=== PATIENT | female | born 1960 | race Caucasian/White ===

== ENCOUNTER 2018-11-29 17:12 | Inpatient (IN) | payer MEDICAID, OTHER ==
--- NOTE | 2018-11-29 17:32 | EDPHY ---
H & P Source: Patient Exam Limitations: No limitations Time Seen by Provider: 11/29/18 17:27 HPI/ROS: HPI: This is a 57-year-old female who presents with Chief Complaint: Cold x2 weeks Location: Nose, throat, body Quality: Cold Duration: 2 weeks Signs and Symptoms: no fever, +o nausea, no vomiting, no diarrhea, no urinary symptoms, no chest pain, no shortness of breath, no wheezing, no cough, no sore throat, no neck stiffness, no joint pain, no swollen glands, no ear pain, no rash Timing: Severity: Context: Patient has FS GS, followed by [facility], Dr. Montoya, presents with 2 week history of a cold. She reports that she has nasal congestion, sore throat, body aches. She has reported 17 lb weight gain in 1 month. She denies any pedal edema. She had some collection in her eye lashes and medial canthus several days ago. Denies any eye redness, visual changes. She has no fever, vomiting, diarrhea. She did not receive her influenza vaccine this year. No history of lung disease. Patient reports that she had lab work drawn today but does not know the results of these. Patient has been taking furosemide 80 mg daily without improvement in symptoms. She reports that she feels puffiness underneath both of her eyes. She is afraid that her FS she is acting up. Patient notes decreased urine output over the last several days. Patient reports that she has required steroids in the past but has been in remission. Modifying Factors: None Comment: ROS: A comprehensive 10 system review of systems is otherwise negative aside from elements mentioned in the history of present illness. MEDICAL/SURGICAL/SOCIAL HISTORY: Medical history: FSGS. Surgical history: Denies Social history: Nonsmoker. Divorce. Family history noncontributory. CONSTITUTIONAL: Well-developed, well-nourished, well-appearing middle-aged white female, awake and alert, no obvious distress HEENT: Atraumatic and normocephalic, PERRL, EOMI. Mild puffiness noted below both eyes. Nares patent; no rhinorrhea; no nasal mucosal edema. Tympanic membranes clear. Oropharynx clear, no exudate and moist pink mucosa. Airway patent. No lymphadenopathy. No meningismus. No JVD. Cardiovascular: Normal S1/S2, regular rate, regular rhythm, without murmur rub or gallop. PULMONARY/CHEST: Symmetrical and nontender. Clear to auscultation bilaterally. Good air movement. No accessory muscle usage. ABDOMEN: Soft, nondistended, nontender, no rebound, no guarding, no peritoneal signs, no masses or organomegaly. No CVAT. EXTREMITIES: 2/2 pulses, strength 5/5, no deformities, no clubbing, no cyanosis or edema. NEUROLOGICAL: no focal neuro deficits. GCS 15. SKIN: Warm and dry, no erythema. no rash. Good capillary refill. (Harrah,Terra) Constitutional: Initial Vital Signs Temperature (C) 36.8 C 11/29/18 17:26 Heart Rate 81 11/29/18 17:26 Respiratory Rate 28 H 11/29/18 17:26 Blood Pressure 165/97 H 11/29/18 17:26 O2 Sat (%) 94 11/29/18 17:26 O2 Delivery Mode Room Air Allergies/Adverse Reactions: lisinopril Allergy (Verified 11/29/18 17:25) Home Medications: Medication Instructions Recorded Cholecalciferol Vit D3 [Vitamin D3 1,000 units PO DAILY 11/29/18 (*)] Cyanocobalamin [Vitamin B12 (*)] 1,000 mcg PO DAILY 11/29/18 Furosemide [Lasix 80 MG (*)] 80 mg PO DAILY PRN 11/29/18 Losartan Potassium [Cozaar 25 mg 25 mg PO DAILY 11/29/18 (*)] Medical Decision Making ED Course/Re-evaluation: Vital signs reviewed and show tachypnea but no hypoxia or respiratory distress. IV access, laboratory studies, urinalysis, chest x-ray ordered No indication for influenza swab at this time No Evidence of peripheral edema, ascites, sepsis 1800: Chest x-ray my read via PAC shows no opacity, no effusion, no widened mediastinum, no pneumothorax. Radiology chest x-ray read shows: Mild bronchitis. No other findings for acute cardiopulmonary abnormality. 1805: Urinalysis shows specific gravity greater than 1.035, 3+ protein, 1+ blood, 10-15 WBCs, trace bacteria, 2+ mucus 1835: Labs reviewed. No signs of leukocytosis/anemia/platelet dysfunction/ electrolyte imbalance. BUN 36, creatinine 1.3 Patient is showing proteinuria with elevated creatinine. Baseline creatinine appears to be around 1.1 Given IV Lasix 40 mg ED decision to consult hospitalist for failure of outpatient treatment, acute on chronic renal insufficiency, proteinuria. Spoke with hospitalist, Dr. Steele, who kindly agrees to admit the patient. This patient was seen under the supervision of my secondary supervising physician. I evaluated care for this patient with attending. (Kaia Briceno) The patient was evaluated and managed by the physician educational program assistant. I have reviewed this chart and I agree with the findings and plan of care as documented , as indicated by my signature. I am the secondary supervising physician. ( Angelia Duvall) Differential Diagnosis: Differential diagnosis includes but is not limited to sinusitis, upper respiratory infection, bronchitis, viral syndrome, nephrotic syndrome. (Kaia Briceno) - Data Points Laboratory Results: Laboratory Results 11/29/18 18:07 11/29/18 18:07 Medications Given: Cholecalciferol (Vitamin D) 1,000 units PO DAILY KAREN Stop: 05/29/19 08:59 Last Admin: 11/30/18 09:43 Dose: 1,000 units Furosemide (Lasix Injection) 40 mg IVP DAILY KAREN Stop: 05/29/19 08:59 Last Admin: 11/30/18 10:31 Dose: Not Given Heparin Sodium (Porcine) (Heparin Sc Injection) 5,000 unit SC Q8HRS KAREN Stop: 05/29/19 13:59 Last Admin: 11/30/18 13:07 Dose: 5,000 unit Metolazone (Zaroxolyn) 2.5 mg PO DAILY KAREN Stop: 05/29/19 12:29 Last Admin: 11/30/18 13:07 Dose: 2.5 mg Vitamin B Complex (Vitamin B12) 1,000 mcg PO DAILY KAREN Stop: 05/29/19 08:59 Last Admin: 11/30/18 09:43 Dose: 1,000 mcg Discontinued Medications Furosemide (Lasix Injection) 40 mg IVP EDNOW ONE Stop: 11/29/18 19:03 Last Admin: 11/29/18 19:16 Dose: 40 mg Furosemide (Lasix) 80 mg PO DAILY KAREN Stop: 05/29/19 10:44 Last Admin: 11/30/18 10:52 Dose: 80 mg Losartan Potassium (Cozaar) 25 mg PO DAILY KAREN Stop: 05/29/19 08:59 Last Admin: 11/30/18 10:20 Dose: 25 mg Departure - Departure Disposition: [facility] Clinical Impression: Acute on chronic renal insufficiency, FSGS (focal segmental glomerulosclerosis) Proteinuria Qualifiers: Proteinuria type: other Qualified Code(s): R80.8 - Other proteinuria Condition: Fair
[2018-11-29 18:29] LABS: PLATELET COUNT 308 10^3/uL (150-400)
[2018-11-29] MEDS ORDERED: FUROSEMIDE 40 MG/4 ML VIAL IVP ONE (19:02)
[2018-11-29] MEDS ORDERED: ACETAMINOPHEN 325 MG TAB PO PRN (20:03)
[2018-11-29] MEDS ORDERED: HYDROmorphONE/DILAUDID 1 MG/ML INJ IVP PRN (20:03)
[2018-11-29] MEDS ORDERED: HYDROCODONE/APAP 5/325 TAB PO PRN (20:03)
[2018-11-29] MEDS ORDERED: PROMETHAZINE HCL 25 MG/ML INJ IVP PRN (20:03)
[2018-11-29] MEDS ORDERED: oxyCODONE IR 5 MG TAB PO PRN (20:03)
[2018-11-29] MEDS ORDERED: ONDANSETRON DISINTEGRATING 4 MG TAB PO PRN (20:03)
[2018-11-29] MEDS ORDERED: ONDANSETRON 4 MG/2 ML VIAL IVP PRN (20:03)
--- NOTE | 2018-11-29 20:06 | PDGENHP ---
History and Physical - Chief Complaint URI sxs and lower extremity swelling - History of Present Illness 57 yo F with PMH of FSGS and CKD followed by [facility] presenting with complaints of approximately 2 week history of upper respiratory infection that she believes to be bronchitis associated with a 17 pound weight gain with lower extremity edema and abdominal wall edema that has been refractory to lasix at home. She notes that she previously had active FSGS with what sounds like associated nephrotic syndrome that has been followed and treated by Dr. Montoya at [facility]. She had concerns that her FSGS which has previously been 'in remission' may be reactivated by her current viral illness. She has noticed along with weight gain, frothy urine and decreased urine output similar to what she has had in the past. She has been taking 80mg of lasix daily without improvement in her swelling and weight gain. She has not had fever or chills, sob, pain with urination or chest pain. History Information - Allergies/Home Medication List Allergies/Adverse Reactions: lisinopril Allergy (Verified 11/29/18 17:25) Home Medications: Cholecalciferol Vit D3 [Vitamin D3 (*)] 1,000 units PO DAILY 11/29/18 [Last Taken 11/29/18] Cyanocobalamin [Vitamin B12 (*)] 1,000 mcg PO DAILY 11/29/18 [Last Taken ] Furosemide [Lasix 80 MG (*)] 80 mg PO DAILY PRN 11/29/18 [Last Taken 11/29/18] Losartan Potassium [Cozaar 25 mg (*)] 25 mg PO DAILY 11/29/18 [Last Taken ] I have personally reviewed and updated: family history, medical history, social history, surgical history - Past Medical History hypertension, hyperlipidemia Additional medical history: CKD -baseline creatinine 1.1 due to FSGS - Surgical History Reports: no pertinent surgical hx - Family History Positive for: non-pertinent - Social History Smoking Status: Never smoked Alcohol Use: None Drug Use: None Review of Systems Review of Systems: ROS: 10pt was reviewed & negative except for what was stated in HPI & below Physical Exam Physical Exam: Temp Pulse Resp BP Pulse Ox 37 C 77 20 167/101 H 94 11/29/18 18:21 11/29/18 19:39 11/29/18 19:39 11/29/18 19:39 11/29/18 19:39 Constitutional: no apparent distress, obese Eyes: PERRL, anicteric sclera Ears, Nose, Mouth, Throat: moist mucous membranes, hearing normal Cardiovascular: regular rate and rhythym, no murmur, rub, or gallop, edema Respiratory: no respiratory distress, no rales or rhonchi, clear to auscultation Gastrointestinal: normoactive bowel sounds, soft, non-tender abdomen, no palpable masses Genitourinary: no bladder tenderness Skin: warm, normal color, mottled Musculoskeletal: full muscle strength, no muscle tenderness Neurologic: AAOx3 Psychiatric: interacting appropriately, not anxious, not encephalopathic Lab Data & Imaging Review 11/29/18 18:07 11/29/18 18:07 WBC 7.80 10^3/uL (3.80-9.50) 11/29/18 18:07 RBC 4.83 10^6/uL (4.18-5.33) 11/29/18 18:07 Hgb 13.4 g/dL (12.6-16.3) 11/29/18 18:07 Hct 40.4 % (38.0-47.0) 11/29/18 18:07 MCV 83.6 fL (81.5-99.8) 11/29/18 18:07 MCH 27.7 pg (27.9-34.1) L 11/29/18 18:07 MCHC 33.2 g/dL (32.4-36.7) 11/29/18 18:07 RDW 13.7 % (11.5-15.2) 11/29/18 18:07 Plt Count 308 10^3/uL (150-400) 11/29/18 18:07 MPV 9.3 fL (8.7-11.7) 11/29/18 18:07 Neut % (Auto) 69.5 % (39.3-74.2) 11/29/18 18:07 Lymph % (Auto) 23.6 % (15.0-45.0) 11/29/18 18:07 [place] % (Auto) 5.6 % (4.5-13.0) 11/29/18 18:07 Eos % (Auto) 0.6 % (0.6-7.6) 11/29/18 18:07 Baso % (Auto) 0.4 % (0.3-1.7) 11/29/18 18:07 Nucleat RBC Rel Count 0.0 % (0.0-0.2) 11/29/18 18:07 Absolute Neuts (auto) 5.42 10^3/uL (1.70-6.50) 11/29/18 18:07 Absolute Lymphs (auto) 1.84 10^3/uL (1.00-3.00) 11/29/18 18:07 Absolute Monos (auto) 0.44 10^3/uL (0.30-0.80) 11/29/18 18:07 Absolute Eos (auto) 0.05 10^3/uL (0.03-0.40) 11/29/18 18:07 Absolute Basos (auto) 0.03 10^3/uL (0.02-0.10) 11/29/18 18:07 Absolute Nucleated RBC 0.00 10^3/uL (0-0.01) 11/29/18 18:07 Immature Gran % 0.3 % (0.0-1.1) 11/29/18 18:07 Immature Gran # 0.02 10^3/uL (0.00-0.10) 11/29/18 18:07 Sodium 135 mEq/L (135-145) 11/29/18 18:07 Potassium 4.5 mEq/L (3.5-5.2) 11/29/18 18:07 Chloride 108 mEq/L (97-110) 11/29/18 18:07 Carbon Dioxide 22 mEq/l (22-31) 11/29/18 18:07 Anion Gap 5 mEq/L (6-14) L 11/29/18 18:07 BUN 36 mg/dL (7-23) H 11/29/18 18:07 Creatinine 1.3 mg/dL (0.6-1.0) H 11/29/18 18:07 Estimated GFR 42 11/29/18 18:07 Glucose 99 mg/dL (70-100) 11/29/18 18:07 Calcium 8.1 mg/dL (8.5-10.4) L 11/29/18 18:07 Urine Color MARGARITO 11/29/18 17:35 Urine Appearance MODERATELY TURBID 11/29/18 17:35 Urine pH 5.0 (5.0-7.5) 11/29/18 17:35 Ur Specific [place] > 1.035 (1.002-1.030) H 11/29/18 17:35 Urine Protein 3+ (NEGATIVE) H 11/29/18 17:35 Urine Ketones NEGATIVE (NEGATIVE) 11/29/18 17:35 Urine Blood 1+ (NEGATIVE) H 11/29/18 17:35 Urine Nitrate NEGATIVE (NEGATIVE) 11/29/18 17:35 Urine Bilirubin NEGATIVE (NEGATIVE) 11/29/18 17:35 Urine Urobilinogen NEGATIVE EU (0.2-1.0) 11/29/18 17:35 Ur Leukocyte Esterase NEGATIVE (NEGATIVE) 11/29/18 17:35 Urine RBC 3-5 /hpf (0-3) H 11/29/18 17:35 Urine WBC 10-15 /hpf (0-3) H 11/29/18 17:35 Ur Epithelial Cells 1+ /lpf (NONE-1+) 11/29/18 17:35 Urine Bacteria TRACE /hpf (NONE SEEN) H 11/29/18 17:35 Hyaline Casts 5-15 /lpf (0-1) 11/29/18 17:35 Granular Casts 5-15 /lpf (0-1) 11/29/18 17:35 Urine Mucus 2+ /lpf (NONE-1+) H 11/29/18 17:35 Urine Glucose NEGATIVE (NEGATIVE) 11/29/18 17:35 Visualized and Interpreted Chest x-ray results: Yes Chest X-Ray results: no infiltrate, other (bronchitis) Assessment & Plan Assessment: Acute on chronic renal insufficiency (Acute) FSGS (focal segmental glomerulosclerosis) (Acute) Proteinuria (Acute) 57 yo F with PMH of FSGS and proteinuria as well as ckd presenting with URI sxs and e/o acute bronchitis as well as concerns of increasing edema not responding to oral lasix # acute bronchitis: overall sxs are relatively mild, not hypoxic, will start prn nebs, lungs clear on exam and cxr without pna. # volume overload: patient reporting 17 pound weight gain and concerns that she is not responding to oral lasix, does not appear volume overloaded on cxr and lower extremity with only trace edema so weight gain may not be all fluid gain. She was given IV lasix 40 mg in ER and will repeat x 1 in am. Do not think further w/u or treatment indicated after that if nothing else changes overnight and would dc home in am to f/u with nephrology # ron on ckd: baseline creatinine 1.1, currently 1.3. Giving lasix and will repeat in am. Followed by renal. # FSGS: patient reports previously being treated for this with steroids but being in remission for quite some time, does have proteinuria on UA today, as above, so long as remains stable would defer further w/u to outpatient # HTN: BP has been elevated since arrival largely to 150-160s systolic, lasix as above and resume losartan in am so long as renal function stable # observation status # patient new to my care. Old records reviewed and summarized as above. Care plan reviewed with PA in ER as above.
[2018-11-29] MEDS ORDERED: IPRATROPIUM/ALBUTEROL 3 ML DEYVIAL IH PRN (22:21)
[2018-11-30] MEDS ORDERED: LOSARTAN POTASSIUM 25 MG TAB PO SCH (09:00)
[2018-11-30] MEDS: FUROSEMIDE 40 MG/4 ML VIAL IVP SCH ×2 (09:42→10:31)
[2018-11-30] MEDS: CHOLECALCIFEROL VIT D3 1,000 UNITS TAB PO SCH (09:43)
[2018-11-30] MEDS: CYANO/VITAMIN B12 1000 MCG TAB PO SCH (09:43)
[2018-11-30] MEDS ORDERED: FUROSEMIDE 80 MG TAB PO SCH (10:30)
[2018-11-30] MEDS ORDERED: FUROSEMIDE 40 MG TAB PO SCH (10:45)
[2018-11-30] MEDS: HEPARIN 5,000 UNIT/0.5 ML INJ SC SCH ×2 (13:07→22:03)
[2018-11-30] MEDS: METOLAZONE 2.5 MG TAB PO SCH (13:07)
--- NOTE | 2018-11-30 13:58 | GCON ---
[f rep st] CONSULTATION NEPHROLOGY CONSULTATION DATE OF CONSULTATION: 11/30/2018 REASON FOR CONSULTATION: Fluid overload, history of nephrotic syndrome. HISTORY OF PRESENT ILLNESS: This is a pleasant 57-year-old female with a past medical history signif icant for biopsy-documented focal segmental glomerulosclerosis, nephrotic syndrome, obesity, hyperten sherice, and probable sleep apnea, who now presents with complaints of 20-pound weight gain and anasarca . History is obtained from the patient, who is a good historian. Additional history is obtained fro m her medical records. The patient has been followed by my partner, Dr. Joe Montoya, of the [facility] office. The patient had been living in [place], [place] where she had been cared for by nephrolog ist, Dr. Varma. The patient believes she may have had nephrotic syndrome intermittently since he r early 40s. However, her ultimate diagnosis came in February 2016 when she presented with hypoalbuminem ia and anasarca. Per her records, she underwent a renal biopsy, and was diagnosed with focal segment al glomerular sclerosis. She was treated with high-dose prednisone, and this was ultimately tapered off after a total of 12 months of therapy. The patient originally had 60 pounds of extra fluid when she presented. This was treated with diuretics. She did have 70 pounds of non-fluid weight gain rel ating to the corticosteroids. Since that time, she has been in remission. She does believe a viral syndrome triggered her worsening proteinuria in 2015. The patient was seen initially in our office in September of this year. At that time, her serum albumi n was 4.2, and her creatinine was 0.93. A blood pressure in the office was 138/70. She was maintain ed on her angiotensin receptor zonia and encouraged to lose weight. The patient had a followup visit in October. At that time, she appeared stable. Her weight was 273 pounds on that visit. The patient did note recent significant increases in her edema over the past 2 weeks. She has also n oted a viral-type syndrome over the past 4 weeks. This has included some feeling of chills and sweat s. The patient had laboratory studies done yesterday at an outpatient lab, which showed her albumin had decreased to 2.6. Her creatinine was 1.16, and her electrolytes looked good. Relating to these findings, the patient ultimately presented for admission for her volume control and for a plan relati ng to her probable exacerbation of nephrotic syndrome. We are now asked by the hospitalist service t o assist the patient with her renal diagnosis and management. PAST MEDICAL HISTORY: 1. Hypertension. 2. Focal segmental glomerulosclerosis. 3. History of menorrhagia. 4. Fatty liver. 5. Morbid obesity. 6. Degenerative joint disease. 7. Anxiety and depression. SURGICAL HISTORY: None. HOME MEDICATIONS: Lasix 80 mg daily, losartan 25 mg daily, vitamin D 1000 units daily, and vitamin B 12 2500 mcg daily. FAMILY HISTORY: Positive with Alzheimer, coronary artery disease, and diabetes. SOCIAL HISTORY: The patient was born in [place]. 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 She moved to this area to be near her sister. They are living together in the [facility]ending [facility] to [facility]. She does no t have a history of smoking or alcohol use. She is and does not have children. REVIEW OF SYSTEMS: Notable for the aforementioned chills and sweats without documented fevers. She has had occasional mild headache. She has occasional visual auras with migraines. She is not presen tly having this. She has had some coryza and sore throat. She has had some cough. She has had some dyspnea on exertion. She denies chest pain or palpitations. She denies abdominal pain or constipat ion. She has occasional diarrhea. She denies dysuria or urinary frequency. She has had increased e sue in her face, hands, and feet. She does have some skin rashes in intertriginous areas. She ángel es symptoms of neuropathy. She does not have any focal neurologic findings. PHYSICAL EXAM: GENERAL: At time of exam, the patient is appropriate and alert. VITAL SIGNS: [place] rature 36.7, pulse 78, and blood pressure 171/95. EYES: Sclerae clear. There is some periorbital e sue. OROPHARYNX: Clear. NECK: Obese. No lymphadenopathy or thyromegaly are palpable. LUNGS: C lear to auscultation throughout all lung [place]. CARDIOVASCULAR: Regular rate and rhythm without mu rmurs, gallops, or rubs. ABDOMEN: Obese and nontender. /RECTAL: Deferred. EXTREMITIES: The ricardo siegel has 2+ edema in her ankles and 1+ in her hands. INTEGUMENT: Generally clear except the aforem entioned intertriginous areas. NEUROLOGICAL: No focal findings. LABORATORY STUDIES: White count 7.8, hematocrit 40.4, and platelets 308. Sodium 135, potassium 4.6, and creatinine 1.2. Urinalysis: Specific gravity 1.035, protein 1+, blood 1+, 10 to 15 white cells , and 1+ epithelial cells. IMPRESSION AND PLAN: 1. Probable relapse of nephrotic syndrome, with a history of steroid-responsive focal segmental glom erulosclerosis. At this time, I will add a serum albumin onto her current labs. However, we do have documented evidence of her serum albumin decreasing from 4.3 to 2.6 over the past 1 to 2 months. Th is is accompanied by increased edema. The patient may have some pulmonary hypertension, which could exacerbate her edema in this setting. She also has been eating a high-sodium diet. 2. For now, we will quantitate her 24-hour urine. We will increase her diuresis by adding metolazon e. Presently, we have been unable to obtain intravenous access. Relating to this, we will try to di urese her with oral studies. We will follow daily labs including electrolytes. Given she likely has pulmonary hypertension, I believe she may be easier to diurese off her adrenergic receptor binder, s o I will hold this. If her blood pressure remains difficult, we will add in a low-dose calcium chann el zonia. 3. Once we further ascertain the degree of her relapse, we will determine whether a repeat renal bio psy is needed and appropriate medical therapy. I did review this plan with the patient and her siste r, who were agreeable. 4. Edema. Please see above. This is likely due to worsening hypoalbuminemia. She has also had a h igh-sodium diet. She will be placed on a sodium restriction, and attempts will be to diurese her wit h furosemide 80 mg twice daily and Zaroxolyn 2.5 mg daily. If this is unsuccessful, then she will re quire some type of central access, given her poor peripheral access. 5. Probable sleep apnea. The patient was observed to have nocturnal desaturations. We will need to treat this in a chronic fashion, led by an outpatient sleep study. 6. Viral symptoms. The patient believes she has had a recent upper respiratory tract infection. We will follow her for other evidence of infection. Her white count is normal, and she is afebrile. 7. Deep venous thrombosis prophylaxis. I will start her on subcutaneous heparin. Thank you for allowing us to participate in this pleasant lady's care. We will continue to follow deepali blanco closely with you. /[id number]/MODL
--- NOTE | 2018-11-30 15:58 | HOSPPROG ---
Hospitalist Progress Note Assessment/Plan: Subjective Follow-up on edema and weight gain. Case reviewed with Dr. Jensen with Nephrology. Appreciate his consultation. Patient states that she had been battling an upper respiratory like illness over the past few weeks and noted weight gain and worsening edema. Her most recent stable weight has been around 275 and she noticed an approximate 20 lb weight gain over a few day period of time. Once she noted a weight gain she started on oral Lasix and noted about a 5 lb weight loss over 4-5 days. Her weight then seen the level off and due to the persistent weight gain presented to the emergency room. Dr. Tijerina is her primary industrial cleaner in [facility]. Objective Vital signs as detailed below Physical exam General-awake alert conversant no acute distress Heart-regular rate and rhythm no murmurs Lungs-Clear to auscultation with normal respiratory effort Abdomen-soft nontender nondistended normal bowel sounds -no Franks catheter in place Extremities-edematous hands bilaterally and ankles. Skin-no concerning skin rashes noted Labs as detailed below Assessment and plan Edema-3+ edema noted on urinalysis. 24 hr urine collection currently in place. We lost IV access this morning. Her Lasix has been adjusted to 80 mg p.o. Twice a day along with Zaroxolyn. Suspecting related to FSGS. Upper respiratory infection-chest x-ray negative for infiltrate and patient is maintaining normal oxygen saturation on room air. Hypertension-losartan placed on hold for now. FSGS-history of. Diagnosed formally in 2016 with renal biopsy. She was on steroids for approximately 1 year and these were ultimately weaned off in January of 2018. DVT prophylaxis-heparin started. Disposition-pending further diuresis closer to her baseline weight. I anticipate she would really will return home at the time of discharge when medically clear. Objective: Vital Signs Temp Pulse Resp BP Pulse Ox 36.3 C 71 16 161/90 H 95 11/30/18 15:45 11/30/18 15:45 11/30/18 15:45 11/30/18 15:45 11/30/18 15:45 Laboratory Results 11/30/18 04:51 11/29/18 11/30/18 12/01/18 05:59 05:59 05:59 Intake Total 1160 Output Total 300 200 Balance -300 960 ICD10 Worksheet Patient Problems: Problems Problem Status Onset Acute on chronic renal insufficiency Acute FSGS (focal segmental glomerulosclerosis) Acute Proteinuria Acute
[2018-11-30] MEDS: FUROSEMIDE 40 MG TAB PO SCH (16:32)
--- NOTE | 2018-11-30 16:32 | ASMTCMCOM ---
CM Note CM Note Notes: Spoke with pt in the room and reviewed chart. Pt admitted for fluid overload after URI in the setting of CKD due to Focal segmental glomerulosclerosis which was in remission. Pt lives with sister and brother in law who are supportive and pt feels she will likely be able to discharge home independently. No therapies ordered at this time. Hospitalist felt d/c likely in 2 - 3 days. CM to follow. D/c Plan: Independent to sister's home. Date Signed: 11/30/2018 04:32 PM Electronically Signed By:Jagruti Adkins
--- NOTE | 2018-11-30 21:41 | PDMN ---
Medical Necessity Medical necessity: Change to IP, as of 11/30/18, per MD; los >2 mn for ongoing management of worsening edema following upper respiratory infection w/probable relapse of nephrotic syndrome; requiring further monitoring, follow-up labs, 24 hr urine collection & med management; hx focal segmental glomerulosclerosis, proteinuria
[2018-12-01] MEDS: HEPARIN 5,000 UNIT/0.5 ML INJ SC SCH ×3 (05:24→21:30)
[2018-12-01] MEDS: METOLAZONE 2.5 MG TAB PO SCH (07:50)
[2018-12-01] MEDS: FUROSEMIDE 40 MG TAB PO SCH ×2 (07:50→15:44)
[2018-12-01] MEDS: CHOLECALCIFEROL VIT D3 1,000 UNITS TAB PO SCH (07:50)
[2018-12-01] MEDS: CYANO/VITAMIN B12 1000 MCG TAB PO SCH (07:51)
[2018-12-01] MEDS ORDERED: FUROSEMIDE 40 MG TAB PO SCH (09:00)
--- NOTE | 2018-12-01 09:09 | SOAPPROG ---
SOAP Progress Note Assessment/Plan: Assessment: FSGS, steroid responsive in the past, follows with Dr. Tijerina proteinuria with sequelae, edema and hypoalbuminemia Volume overload, diuresing nicely Anasarca due to proteinuria and hypoalbuminemia Plan: Discussed therapies, has responded clinically to steroids in the past, but gained significant visceral weight, doesn't want to start prednisone yet continue diuresis Unable to use GUS-I due to allergy will start prednisone prior to leaving hospital if doesn't respond to Pred will likely need another biopsy await 24 hour urine results check lipid panel 12/01/18 08:53 Subjective: spirits good all things considered lots of questions today, all answered to her satisfaction no cp, some SOB no nausea vomiting or anorexia energy OK slept fine no pain today Objective: Vital Signs Temp Pulse Resp BP Pulse Ox 36.6 C 67 18 127/90 H 94 12/01/18 07:11 12/01/18 07:11 12/01/18 07:11 12/01/18 07:11 12/01/18 07:11 11/30/18 12/01/18 12/02/18 05:59 05:59 05:59 Intake Total 100 Output Total 1900 Balance -1800 Physical Exam - Physical Exam General Appearance: alert, obese Neck: normal inspection Respiratory: No rhonchi, No wheezing, No pleural rub Cardiac/Chest: regular rate, rhythm, edema, No gallop, No systolic murmur, No friction rub Abdomen: normal bowel sounds, non-tender, soft Skin: warm/dry Extremities: swelling Neuro/Psych: alert, normal mood/affect, oriented x 3 ICD10 Worksheet Patient Problems: Problems Problem Status Onset Acute on chronic renal insufficiency Acute FSGS (focal segmental glomerulosclerosis) Acute Proteinuria Acute
--- NOTE | 2018-12-01 11:24 | HOSPPROG ---
Hospitalist Progress Note Assessment/Plan: Edema-3+ edema noted on urinalysis. 24 hr urine collection currently in place and will be complete today. Diuresing adequately with PO lasix as IV access was lost. Suspecting related to FSGS. Nephrology consulted and will need to await 24 urine results, likely start pred, and check lipid panel. -renal following -await 24 hour urine -likely start pred -depending on response to pred, may need another renal biopsy -continue diureses with lasix 80mp PO bid with metolazone Upper respiratory infection-chest x-ray negative for infiltrate and patient is maintaining normal oxygen saturation on room air. Hypertension-losartan placed on hold for now. FSGS-history of. Diagnosed formally in 2016 with renal biopsy. She was on steroids for approximately 1 year and these were ultimately weaned off in January of 2018. as above. DVT prophylaxis-heparin started. Fluids- none Disposition-pending further diuresis closer to her baseline weight. I anticipate she would really will return home at the time of discharge when medically clear. Subjective: still very swollen legs. No other complaints. Objective: Vital Signs Temp Pulse Resp BP Pulse Ox 36.6 C 65 20 128/90 H 93 12/01/18 11:02 12/01/18 11:02 12/01/18 11:02 12/01/18 11:02 12/01/18 11:02 11/30/18 12/01/18 12/02/18 05:59 05:59 05:59 Intake Total 100 Output Total 1900 500 Balance -1800 -500 - Physical Exam Constitutional: no apparent distress, appears nourished, not in pain Eyes: PERRL, anicteric sclera, EOMI Ears, Nose, Mouth, Throat: moist mucous membranes, hearing normal, ears appear normal, no oral mucosal ulcers Cardiovascular: regular rate and rhythym, no murmur, rub, or gallop, edema (2 + pitting edema in legs. ) Respiratory: no respiratory distress, no rales or rhonchi, clear to auscultation Gastrointestinal: normoactive bowel sounds, soft, non-tender abdomen, no palpable masses Genitourinary: no bladder fullness, no bladder tenderness, no renal bruits Skin: no rashes or abrasions, no fluctuance, no induration Musculoskeletal: full muscle strength, no muscle tenderness, normal joint ROM Neurologic: AAOx3, sensation intact bilaterally Psychiatric: interacting appropriately, not anxious, not encephalopathic, thought process linear Lymph, Heme, Immunologic: no cervical LAD, no supraclavicular LAD ICD10 Worksheet Patient Problems: Problems Problem Status Onset Acute on chronic renal insufficiency Acute FSGS (focal segmental glomerulosclerosis) Acute Proteinuria Acute
[2018-12-01 12:59] LABS: PLATELET COUNT 236 10^3/uL (150-400)
--- NOTE | 2018-12-01 15:39 | ASMTCMCOM ---
CM Note CM Note Notes: CM discussed case with Slime FERNANDEZ, patient likely to discharge in a few days, currently undergoing further work-up & continuing diuresis. CM to follow. D/C Plan: Independent. Date Signed: 12/01/2018 03:38 PM Electronically Signed By:Preeti Ortiz
[2018-12-02] MEDS: HEPARIN 5,000 UNIT/0.5 ML INJ SC SCH ×3 (04:53→21:56)
[2018-12-02] MEDS: BUMETANIDE 2 MG TAB PO SCH ×2 (08:11→21:56)
[2018-12-02] MEDS: METOLAZONE 2.5 MG TAB PO SCH (08:11)
[2018-12-02] MEDS: CYANO/VITAMIN B12 1000 MCG TAB PO SCH (08:12)
[2018-12-02] MEDS: CHOLECALCIFEROL VIT D3 1,000 UNITS TAB PO SCH (08:12)
[2018-12-02] MEDS: FAMOTIDINE 20 MG TAB PO SCH (08:44)
[2018-12-02] MEDS: predniSONE 20 MG TAB PO SCH (08:44)
[2018-12-02] MEDS: ASPIRIN EC 325 MG TAB PO SCH (08:44)
--- NOTE | 2018-12-02 08:44 | SOAPPROG ---
SOAP Progress Note Assessment/Plan: Assessment: FSGS, steroid responsive in the past, follows with Dr. Tijerina proteinuria (more than 16G/day on 24 hour collection) with sequelae, edema and hypoalbuminemia Volume overload, diuresing nicely, with IV, PO lasix may not getting absorbed well with gut edema Anasarca due to proteinuria and hypoalbuminemia At risk for DVT, RVT, PE with her 16+ G of proteinuria and FSGS: Duplex yesterday was negative for LE DVT Plan: Discussed therapies, has responded clinically to steroids in the past, but gained significant visceral weight, after discussing the quantity of proteinuria , willing to start pred 60 mg daily and follow up with Dr. Tijerina soon after discharge continue diuresis, will change to PO bumex at equivalent dose of her prior lasix dose Unable to use GUS-I due to allergy will start prednisone first dose today, would like to see how she does over the next 24 to 48 hours if doesn't respond to Pred will likely need another biopsy, discussed risks checked lipid panel, all things considered looks pretty good, will likely need a statin, will leave that to Dr. Tijerina Will start ASA 325 mg daily to help treat hypercoaguable state from nephrotic syndrome, don't think we need to use warfarin at this point. Nice discussion with Radha, all questions answered to her satisfaction 12/01/18 08:53 12/02/18 08:35 Subjective: slept OK appetite not great this morning no cp sob vomiting, a little nausea this AM a bit anxious about how things are going to go in the [facility], we had a nice discussion, all questions answered to her satisfaction spirits overall good today no pain Objective: Vital Signs Temp Pulse Resp BP Pulse Ox 36.6 C 77 16 150/82 H 96 12/02/18 08:00 12/02/18 08:00 12/02/18 08:00 12/02/18 08:00 12/02/18 08:00 Laboratory Results 12/01/18 12:30 12/02/18 05:38 12/01/18 12/02/18 12/03/18 05:59 05:59 05:59 Intake Total 100 1000 Output Total 1900 1150 500 Balance -1800 -150 -500 Physical Exam - Physical Exam General Appearance: alert, obese Neck: normal inspection Respiratory: No rhonchi, No wheezing Cardiac/Chest: regular rate, rhythm, edema, No friction rub Abdomen: normal bowel sounds, non-tender Skin: warm/dry Extremities: swelling Neuro/Psych: alert, normal mood/affect, oriented x 3 ICD10 Worksheet Patient Problems: Problems Problem Status Onset Acute on chronic renal insufficiency Acute FSGS (focal segmental glomerulosclerosis) Acute Proteinuria Acute
--- NOTE | 2018-12-02 10:00 | HOSPPROG ---
Hospitalist Progress Note Assessment/Plan: Edema-3+ edema noted on urinalysis. IV access lost. she is 286 pounds today which is not too far off from previous dry weight for her. lasix held today in favor of starting bumex 2mg BID with zaroxolyn. -monitor response to bumex and zaroxolyn -24 hour urine with nephrotic range proteinuria -start pred today -depending on response to pred, may need another renal biopsy Upper respiratory infection-chest x-ray negative for infiltrate and patient is maintaining normal oxygen saturation on room air. Hypertension-losartan placed on hold for now. FSGS-history of. Diagnosed formally in 2016 with renal biopsy. She was on steroids for approximately 1 year and these were ultimately weaned off in January of 2018. -Urine collection with nephrotic range proteinuria of 16grams -started on prednisone 60mg daily -renal following DVT prophylaxis-heparin started. Fluids- none Disposition-pending further diuresis closer to her baseline weight. I anticipate she would really will return home at the time of discharge when medically clear. Subjective: still feels swollen but no sob, pain, fevers or other symptoms. Objective: Vital Signs Temp Pulse Resp BP Pulse Ox 36.6 C 77 16 150/82 H 96 12/02/18 08:00 12/02/18 08:00 12/02/18 08:00 12/02/18 08:00 12/02/18 08:00 Laboratory Results 12/01/18 12:30 12/02/18 05:38 12/01/18 12/02/18 12/03/18 05:59 05:59 05:59 Intake Total 100 1000 500 Output Total 1900 1150 500 Balance -1800 -150 0 - Physical Exam Constitutional: no apparent distress, appears nourished, not in pain Eyes: PERRL, anicteric sclera, EOMI Ears, Nose, Mouth, Throat: moist mucous membranes, hearing normal, ears appear normal, no oral mucosal ulcers Cardiovascular: regular rate and rhythym, no murmur, rub, or gallop, edema Respiratory: no respiratory distress, no rales or rhonchi, clear to auscultation Gastrointestinal: normoactive bowel sounds, soft, non-tender abdomen, no palpable masses Genitourinary: no bladder fullness, no bladder tenderness, no renal bruits Skin: no rashes or abrasions, no fluctuance, no induration Musculoskeletal: full muscle strength, no muscle tenderness, normal joint ROM Neurologic: AAOx3, sensation intact bilaterally Psychiatric: interacting appropriately, not anxious, not encephalopathic, thought process linear Lymph, Heme, Immunologic: no cervical LAD, no supraclavicular LAD ICD10 Worksheet Patient Problems: Problems Problem Status Onset Acute on chronic renal insufficiency Acute FSGS (focal segmental glomerulosclerosis) Acute Proteinuria Acute
[2018-12-03] MEDS: HEPARIN 5,000 UNIT/0.5 ML INJ SC SCH (06:03)
[2018-12-03] MEDS: BUMETANIDE 2 MG TAB PO SCH (08:26)
[2018-12-03] MEDS: ASPIRIN EC 325 MG TAB PO SCH (08:26)
[2018-12-03] MEDS: FAMOTIDINE 20 MG TAB PO SCH (08:26)
[2018-12-03] MEDS: predniSONE 20 MG TAB PO SCH (08:26)
[2018-12-03] MEDS: METOLAZONE 2.5 MG TAB PO SCH (08:26)
[2018-12-03] MEDS: CHOLECALCIFEROL VIT D3 1,000 UNITS TAB PO SCH (08:26)
[2018-12-03] MEDS: CYANO/VITAMIN B12 1000 MCG TAB PO SCH (08:26)
--- NOTE | 2018-12-03 10:38 | SOAPPROG ---
SOAP Progress Note Assessment/Plan: Assessment: FSGS, steroid responsive in the past, follows with Dr. Tijerina, has follow up appt with him December 10 I have ordered labs at [facility] in [place] for 12/07/18, she is aware proteinuria (more than 16G/day on 24 hour collection) with sequelae, edema and hypoalbuminemia Volume overload, diuresing nicely, with IV, PO lasix may not getting absorbed well with gut edema, diuresis better with bumex Anasarca due to proteinuria and hypoalbuminemia At risk for DVT, RVT, PE with her 16+ G of proteinuria and FSGS: Duplex yesterday was negative for LE DVT Plan: Discussed therapies, has responded clinically to steroids in the past, but gained significant visceral weight, after discussing the quantity of proteinuria , willing to start pred 60 mg daily and follow up with Dr. Tijerina soon after discharge (12/10/18) continue diuresis, will change to PO bumex at equivalent dose of her prior lasix dose, will likely need or K to go home with as well Unable to use GUS-I due to allergy will start prednisone first dose today, would like to see how she does over the next 24 to 48 hours if doesn't respond to Pred will likely need another biopsy, discussed risks checked lipid panel, all things considered looks pretty good, will likely need a statin, will leave that to Dr. Tijerina Will start ASA 325 mg daily to help treat hypercoaguable state from nephrotic syndrome, don't think we need to use warfarin at this point. Nice discussion with Radha, all questions answered to her satisfaction 12/01/18 08:53 12/02/18 08:35 12/03/18 10:35 Subjective: up to chair slept OK last night UOP good no cp sob nausea or vomiting spirits good no significant pain issues getting up and around discussed possible need for sleep study as outpatient Objective: Vital Signs Temp Pulse Resp BP Pulse Ox 36.3 C 67 16 146/93 H 95 12/03/18 08:00 12/03/18 08:00 12/03/18 08:00 12/03/18 08:00 12/03/18 08:00 Laboratory Results 12/01/18 12:30 12/03/18 04:41 12/02/18 12/03/18 12/04/18 05:59 05:59 05:59 Intake Total 1000 1890 Output Total 1150 2200 800 Balance -150 -617 -760 Physical Exam - Physical Exam General Appearance: alert, obese Neck: normal inspection Respiratory: No rhonchi, No wheezing Cardiac/Chest: regular rate, rhythm, edema, systolic murmur, No friction rub Abdomen: normal bowel sounds, non-tender, soft Extremities: swelling Neuro/Psych: alert, normal mood/affect, oriented x 3 ICD10 Worksheet Patient Problems: Problems Problem Status Onset Acute on chronic renal insufficiency Acute FSGS (focal segmental glomerulosclerosis) Acute Proteinuria Acute
[2018-12-03 12:00] VITALS: BP 168/95
--- NOTE | 2018-12-03 16:43 | PDDCSUM ---
Discharge Summary Discharge Summary: Discharge diagnosis Bronchitis Fluid overload A KI on CKD FSGS Hypertension Patient was admitted with shortness of breath found to be in acute kidney injury and fluid overloaded reporting about a 17 lb weight gain concerns that she was not responding well to oral Lasix. Nephrology was consulted who felt that the patient likely had a relapse of nephrotic syndrome. A 24 hr urine was ordered to quantify the degree of her proteinuria. She was also started on metolazone. She did have a fairly brisk diuresis and her 24 hr urine revealed a nephrotic range proteinuria with almost 16 g of protein in her urine over a 24 hr period. She was started on prednisone 60 mg daily and transitioned to Bumex 2 mg twice a day by Nephrology. She was discharged on this regimen to follow up with her electron gun inspector in [facility] in about a week. On the day of discharge her edema had substantially decreased and she had no oxygen requirement. She was anxious to be discharged home and was in good condition. Disposition Home independent I spent over 30 min on the discharge of this patient
== END 2018-12-03 13:42 | disposition home or self-care (01) | DRG 469 ==
LOC: INTOOBSV 19:01 → F3E 20:08 → OBSVTOIN 11-30 17:47
PROVIDERS: ADMIT Internal Medicine; ATTEND Internal Medicine
DX: N17.8 Other acute kidney failure (principal); E66.9 Obesity, unspecified; N04.1 Nephrotic syndrome with focal and segmental glomerular lesions; I12.9 Hypertensive chronic kidney disease with stage 1 through stage 4 chronic kidney disease, or unspecified chronic kidney disease; N18.9 Chronic kidney disease, unspecified; G47.33 Obstructive sleep apnea (adult) (pediatric); J20.9 Acute bronchitis, unspecified; E78.5 Hyperlipidemia, unspecified
CPT/HCPCS: 86334-90; 96374; G0378; J1644; J1940; J7512